=== PATIENT | female | born 1990 | race Caucasian/White ===

== ENCOUNTER 2021-04-10 17:38 | Emergency (ER) | payer MEDICAID ==
--- NOTE | 2021-04-10 17:43 | ERPHSYRPT ---
- History of Present Illness Historian: patient, family Exam Limitations: no limitations Activities at Onset: none Quality: sharpness, stabbing Abdominal Pain Onset Location: RLQ, flank (Right) Pain Radiation: RLQ, flank (Right flank to right lower quadrant) Severity of Pain-Max: moderate Severity of Pain-Current: moderate Associated Symptoms: loss of appetite, nausea, No fever/chills, No vomiting Previous symptoms: no prior history <VIJAY QUILES - Last Filed: 04/10/21 18:46> <HEATH MOURA - Last Filed: 04/10/21 23:07> - History of Present Illness Time Seen by Provider: 04/10/21 17:43 Physician History: This is a 30-year-old white female who has had no prior abdominal surgeries, takes no medications chronically, has no known drug allergies and presents with 6-day history of right flank pain which radiates around to her right lower quadrant. She has had no fevers. She has had nausea but no vomiting. She is had a decreased appetite as well. She has had no diarrhea. Her pain has not changed it is persistently moderate. It is sharp pain that is shooting around from the flank to the right lower quadrant. Denies dysuria. Denies hematuria. She has had no vaginal discharge. She is currently 3 days into her last menstrual period (VIJAY QUILES) Allergies/Adverse Reactions: No Known Drug Allergies Allergy (Unverified 04/10/21 17:58) Travel Risk - International Travel Have you traveled outside of the country in past 3 weeks: No - Coronavirus Screening Are you exhibiting any of the following symptoms?: No Close contact with a COVID-19 positive Pt in past 14-21 Days: No <VIJAY QUILES - Last Filed: 04/10/21 18:46> - Review of Systems Constitutional: No Symptoms Eyes: No Symptoms Ears, Nose, & Throat: No Symptoms Respiratory: No Symptoms Cardiac: No Symptoms Abdominal/Gastrointestinal: Abdominal Pain, Nausea, No Vomiting, No Diarrhea Genitourinary Symptoms: Flank Pain (Right flank pain), No Dysuria, No Frequency Musculoskeletal: No Symptoms Skin: No Symptoms Neurological: No Symptoms Psychological: No Symptoms Endocrine: No Symptoms Hematologic/Lymphatic: No Symptoms Immunological/Allergic: No Symptoms All Other Systems: Reviewed and Negative <VIJAY QUILES [facility] - Last Filed: 04/10/21 18:46> - Past Medical History Pertinent Past Medical History: No Neurological History: No Pertinent History ENT History: No Pertinent History Cardiac History: No Pertinent History Respiratory History: No Pertinent History Endocrine Medical History: No Pertinent History Musculoskeletal History: No Pertinent History GI Medical History: No Pertinent History History: No Pertinent History Psycho-Social History: No Pertinent History Female Reproductive Disorders: No Pertinent History - Past Surgical History Past Surgical History: No <VIJAY QUILES [facility] - Last Filed: 04/10/21 18:46> - Physical Exam General Appearance: no apparent distress, alert, anxiety Eye Exam: PERRL/EOMI, eyes nml inspection Ears, Nose, Throat Exam: normal ENT inspection, moist mucous membranes Neck Exam: normal inspection, non-tender, supple, full range of motion Respiratory Exam: normal breath sounds, lungs clear, airway intact, No chest tenderness, No respiratory distress Cardiovascular Exam: regular rate/rhythm, normal heart sounds, normal peripheral pulses Gastrointestinal/Abdomen Exam: soft, normal bowel sounds, No tenderness Pelvic Exam: not done Rectal Exam: not done Back Exam: normal inspection, normal range of motion, CVA tenderness (Right), No vertebral tenderness Extremity Exam: normal inspection, normal range of motion, pelvis stable Neurologic Exam: alert, oriented x 3, cooperative, 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, normal mood/affect, nml cerebellar function, nml station & gait Skin Exam: normal color, warm, dry Lymphatic Exam: No adenopathy SpO2 Interpretation: normal O2 Delivery: Room Air <VIJAY QUILES [facility] - Last Filed: 04/10/21 18:46> - Nursing Vital Signs Nursing Vital Signs: Initial Vital Signs Temperature 99.1 F 04/10/21 17:42 Pulse Rate 64 04/10/21 17:42 Respiratory Rate 18 04/10/21 17:42 Blood Pressure 109/73 04/10/21 17:42 O2 Sat by Pulse Oximetry 100 04/10/21 17:42 Pain Scale Pain Intensity 5 - Course Nursing assessment & vital signs reviewed: Yes <IVJAY QUILES [facility] - Last Filed: 04/10/21 18:46> Ordered Tests: Active Orders 24 hr Category Date Time Status IV Insertion STAT Care 04/10/21 18:35 Completed ABDOMEN AND PELVIS W/0 CONTRAS [CT] Stat Exams 04/10/21 18:35 Taken AMYLASE Stat Lab 04/10/21 18:00 Completed CBC W DIFF Stat Lab 04/10/21 18:00 Completed CMP Stat Lab 04/10/21 18:00 Completed CULTURE,URINE Stat Lab 04/10/21 18:38 Received HCG,QUALITATIVE URINE Stat Lab 04/10/21 18:38 Completed LIPASE Stat Lab 04/10/21 18:00 Completed Lactic Acid Stat Lab 04/10/21 18:35 Completed Manual Differential NC Stat Lab 04/10/21 18:00 Completed UA W/RFX UR CULTURE Stat Lab 04/10/21 18:38 Completed Medication Summary Discontinued Medications Generic Name Dose Route Start Last Admin Trade Name Warrenq PRN Reason Stop Dose Admin Acetaminophen 1,000 mg 04/10/21 20:22 04/10/21 20:24 Tylenol Extra Strength 500 Mg PO 04/10/21 20:23 1,000 mg STAT ONE Administration Acetaminophen Confirm 04/10/21 20:23 Tylenol Extra Strength 500 Mg Administered 04/10/21 20:24 Dose 1,000 mg .ROUTE .STK-MED ONE Hydromorphone HCl 0.5 mg 04/10/21 18:35 04/10/21 18:55 Hydromorphone 1 Mg/Ml Injection IV 04/10/21 18:36 0.5 mg STAT ONE Administration Hydromorphone HCl Confirm 04/10/21 18:52 Hydromorphone 1 Mg/Ml Injection Administered 04/10/21 18:53 Dose 1 mg .ROUTE .STK-MED ONE Sodium Chloride 1,000 mls @ 999 mls/hr 04/10/21 18:35 04/10/21 20:15 Sodium Chloride 0.9% 1000 Ml IV 04/10/21 19:35 Infused .Q1H1M STA Infusion Sodium Chloride Confirm 04/10/21 18:52 Sodium Chloride 0.9% 1000 Ml Administered 04/10/21 18:53 Dose 1,000 mls @ ud .ROUTE .STK-MED ONE Levofloxacin 500 mg 04/10/21 21:15 04/10/21 21:19 Levofloxacin 250mg Tablet PO 04/10/21 21:16 500 mg STAT ONE Administration Levofloxacin Confirm 04/10/21 21:17 Levofloxacin 250mg Tablet Administered 04/10/21 21:18 Dose 500 mg .ROUTE .STK-MED ONE Morphine Sulfate 4 mg 04/10/21 20:20 04/10/21 20:21 Morphine Sulfate 4 Mg Inj IV 04/10/21 20:21 Not Given STAT ONE Morphine Sulfate 4 mg 04/10/21 21:14 04/10/21 21:19 Morphine Sulfate 4 Mg Inj IV 04/10/21 21:15 4 mg STAT ONE Administration Morphine Sulfate Confirm 04/10/21 21:17 Morphine Sulfate 4 Mg Inj Administered 04/10/21 21:18 Dose 4 mg .ROUTE .STK-MED ONE Ondansetron HCl 4 mg 04/10/21 18:35 04/10/21 18:55 Zofran 4 Mg/2 Ml Vial IV 04/10/21 18:36 4 mg STAT ONE Administration Ondansetron HCl Confirm 04/10/21 18:51 Zofran 4 Mg/2 Ml Vial Administered 04/10/21 18:52 Dose 4 mg .ROUTE .STK-MED ONE Potassium Chloride 40 meq 04/10/21 21:30 04/10/21 21:32 Klor Con 10 Meq PO 04/10/21 21:31 40 meq STAT ONE Administration Potassium Chloride Confirm 04/10/21 21:31 Klor Con 10 Meq Administered 04/10/21 21:32 Dose 40 meq PO .STK-MED ONE Lab/Rad Data: Laboratory Result Diagrams 04/10/21 18:00 04/10/21 18:00 Laboratory Results 04/10/21 04/10/21 04/10/21 Range/Units 18:38 18:38 18:35 WBC (4.0-10.5) K/mm3 RBC (4.1-5.4) M/mm3 Hgb (12.0-16.0) gm/dl Hct (35-47) % MCV (78-100) fl MCH (26-32) pg MCHC (32-36) g/dl RDW (11.5-14.0) % Plt Count (150-450) K/mm3 MPV (7.5-11.0) fl Segmented Neutrophils (36.0-66.0) % Lymphocytes (Manual) (24-44) % Monocytes (Manual) (0.0-12.0) % Eosinophils (Manual) (0.00-3.0) % Atypical Lymphocytes % Platelet Estimate (NORMAL) RBC Morphology Sodium (137-145) mmol/L Potassium (3.5-5.1) mmol/L Chloride (98-107) mmol/L Carbon Dioxide (22-30) mmol/L Anion Gap (5-15) MEQ/L BUN (7-17) mg/dL Creatinine (0.52-1.04) mg/dL Estimated GFR ML/MIN Glucose (74-106) mg/dL Lactic Acid 1.5 (0.4-2.0) Calcium (8.4-10.2) mg/dL Total Bilirubin (0.2-1.3) mg/dL AST (14-36) U/L ALT (0-35) U/L Alkaline Phosphatase (38-126) U/L Serum Total Protein (6.3-8.2) g/dL Albumin (3.5-5.0) g/dL Amylase (30-110) U/L Lipase (23-300) U/L Urine Color YELLOW (YELLOW) Urine Appearance CLOUDY (CLEAR) Urine pH 7.0 (5-6) Ur Specific [place] 1.004 (1.005-1.025) Urine Protein 30 (Negative) Urine Ketones NEGATIVE (NEGATIVE) Urine Blood MODERATE (0-5) [place]/ul Urine Nitrite NEGATIVE (NEGATIVE) Urine Bilirubin NEGATIVE (NEGATIVE) Urine Urobilinogen NEGATIVE (0-1) mg/dL Ur Leukocyte Esterase LARGE (NEGATIVE) Urine WBC (Auto) >100 (0-5) /HPF Urine RBC (Auto) 16-25 (0-2) /HPF U Epithel Cells (Auto) RARE (FEW) /HPF Urine Bacteria (Auto) MANY (NEGATIVE) /HPF Urine Culture Reflexed YES (NO) Urine Glucose NEGATIVE (NEGATIVE) mg/dL Urine HCG, Qual NEGATIVE (Negative) 04/10/21 04/10/21 Range/Units 18:00 18:00 WBC 14.1 H (4.0-10.5) K/mm3 RBC 4.06 L (4.1-5.4) M/mm3 Hgb 12.2 (12.0-16.0) gm/dl Hct 38.4 (35-47) % MCV 94.6 (78-100) fl MCH 30.0 (26-32) pg MCHC 31.8 L (32-36) g/dl RDW 14.4 H (11.5-14.0) % Plt Count 395 (150-450) K/mm3 MPV 9.7 (7.5-11.0) fl Segmented Neutrophils 72 H (36.0-66.0) % Lymphocytes (Manual) 18 L (24-44) % Monocytes (Manual) 7 (0.0-12.0) % Eosinophils (Manual) 1 (0.00-3.0) % Atypical Lymphocytes 2 % Platelet Estimate NORMAL (NORMAL) RBC Morphology NORMAL Sodium 137 (137-145) mmol/L Potassium 3.1 L (3.5-5.1) mmol/L Chloride 94 L (98-107) mmol/L Carbon Dioxide 32 H (22-30) mmol/L Anion Gap 14.5 (5-15) MEQ/L BUN 3 L (7-17) mg/dL Creatinine 0.79 (0.52-1.04) mg/dL Estimated GFR > 60.0 ML/MIN Glucose 77 (74-106) mg/dL Lactic Acid (0.4-2.0) Calcium 9.6 (8.4-10.2) mg/dL Total Bilirubin 0.40 (0.2-1.3) mg/dL AST 85 H (14-36) U/L ALT 84 H (0-35) U/L Alkaline Phosphatase 261 H (38-126) U/L Serum Total Protein 7.9 (6.3-8.2) g/dL Albumin 4.1 (3.5-5.0) g/dL Amylase < 30 L (30-110) U/L Lipase 16 L (23-300) U/L Urine Color (YELLOW) Urine Appearance (CLEAR) Urine pH (5-6) Ur Specific [place] (1.005-1.025) Urine Protein (Negative) Urine Ketones (NEGATIVE) Urine Blood (0-5) [place]/ul Urine Nitrite (NEGATIVE) Urine Bilirubin (NEGATIVE) Urine Urobilinogen (0-1) mg/dL Ur Leukocyte Esterase (NEGATIVE) Urine WBC (Auto) (0-5) /HPF Urine RBC (Auto) (0-2) /HPF U Epithel Cells (Auto) (FEW) /HPF Urine Bacteria (Auto) (NEGATIVE) /HPF Urine Culture Reflexed (NO) Urine Glucose (NEGATIVE) mg/dL Urine HCG, Qual (Negative) - Progress Progress: improved <VIJAY QUILES - Last Filed: 04/10/21 18:46> - Progress Discussed with .: Corey Counseled pt/family regarding: lab results, diagnosis, need for follow-up, rad results <HEATH MOURA - Last Filed: 04/10/21 23:07> - Progress Progress Note: 04/10/21 18:47 At shift change, I discussed the patient history, condition, pending work-up with Dr. Moura. He accepts the patient in transfer care to him. He will follow up with the studies and make the final disposition (VIJAY QUILES) 04/10/21 patient is checked out to me at shift change with pending work-up. Patient presented with right flank/right upper quadrant pain. She is given symptomatic treatment for pain, on my evaluation CT has some tenderness in the right upper quadrant. Work-up showed white count of 14, mildly elevated transaminases with normal bilirubin. CT showed gallstones without any pericholecystic fluid, CBD dilatation or any gallbladder wall thickening. Patient is nauseated but no vomiting. I believe patient is having biliary colic and needs cholecystectomy. I have discussed with patient and she wants to go home. I have discussed with Dr. Anais Snowden, reviewed work-up and patient's david re. He is okay with sending her home on pain medication and outpatient follow- up. She does have UTI and started on Cipro to go home. Discussed sign symptoms of worsening needing return to ER which she seems understanding. (HEATH MOURA) - Departure Departure Disposition: Home Critical Care Time: No <VIJAY QUILES - Last Filed: 04/10/21 18:46> <HEATH MOURA - Last Filed: 04/10/21 23:07> - Departure Clinical Impression: Colic, biliary, Hypokalemia, Acute UTI Condition: Stable Referrals: DOCTOR,NO FAMILY [Primary Care Provider] - ANAIS SNOWDEN [ACTIVE STAFF] - (1-2 days for reevaluation) Instructions: Acute Abdomen (Belly Pain), Adult (DC), Gallstones (DC) Additional Instructions: Take pain medications as needed. Follow-up with primary care for reevaluation of UTI. Follow-up with general surgery for reevaluation of abdominal pain/gallstone. Return to ER for intractable pain/vomiting/fever chills etc. Prescriptions: Hydrocodone/APAP 5/325 [[place] 5/325 mg] 1 each PO Q6H PRN PRN #10 tablet MDD 4 PRN Reason: Pain Ondansetron ODT 4 MG [Zofran Odt 4 mg] 4 mg PO Q6H PRN PRN #7 tab.rapdis PRN Reason: Vomiting Ciprofloxacin [Cipro 500 MG] 500 mg PO BID #14 tablet
[2021-04-10] MEDS ORDERED: Hydromorphone 1 mg/ml Injection IV ONE (18:35)
[2021-04-10] MEDS ORDERED: Sodium Chloride 0.9% 1000 ML 1,000 ML IV STA (18:35)
[2021-04-10] MEDS ORDERED: Zofran 4 MG/2 ML VIAL IV ONE (18:35)
[2021-04-10 18:45] LABS: Hematocrit 38.4 % (35-47); Hemoglobin 12.2 gm/dl (12.0-16.0); Mean Cell Volume 94.6 fl (78-100); Mean Corpuscular Hgb Concent. 31.8 g/dl (32-36); Mean Platelet Volume 9.7 fl (7.5-11.0); Platelet Count 395 K/mm3 (150-450); Red Blood Count 4.06 M/mm3 (4.1-5.4); Red Cell Distribution Width 14.4 % (11.5-14.0); White Blood Count 14.1 K/mm3 (4.0-10.5)
[2021-04-10 18:49] LABS: ALBUMIN 4.1 g/dL (3.5-5.0); ALKALINE PHOSPHATASE 261 U/L (38-126); AMYLASE < 30 U/L (30-110); ANION GAP 14.5 MEQ/L (5-15); BLOOD UREA NITROGEN 3 mg/dL (7-17); CHLORIDE 94 mmol/L (98-107); Calcium 9.6 mg/dL (8.4-10.2); Carbon Dioxide 32 mmol/L (22-30); Creatinine 1 0.79 mg/dL (0.52-1.04); EST GLOMERULAR FILTRATION RATE > 60.0 ML/MIN; Glucose 77 mg/dL (74-106); LIPASE 16 U/L (23-300); Potassium 3.1 mmol/L (3.5-5.1); SGOT/AST 85 U/L (14-36); SGPT/ALT 84 U/L (0-35); SODIUM 137 mmol/L (137-145); Total Protein 7.9 g/dL (6.3-8.2)
[2021-04-10] MEDS ORDERED: Zofran 4 MG/2 ML VIAL ONE (18:51)
[2021-04-10] MEDS ORDERED: Sodium Chloride 0.9% 1000 ML 1,000 ML ONE (18:52)
[2021-04-10] MEDS ORDERED: Hydromorphone 1 mg/ml Injection ONE (18:52)
[2021-04-10 18:54] LABS: Appearance CLOUDY (CLEAR); Bacteria MANY /HPF (NEGATIVE); Bilirubin NEGATIVE (NEGATIVE); Blood MODERATE Ery/ul (0-5); Epithelial Cells RARE /HPF (FEW); Glucose NEGATIVE (NEGATIVE); Ketones NEGATIVE (NEGATIVE); Leukocyte Esterase LARGE (NEGATIVE); Nitrite NEGATIVE (NEGATIVE); Protein,Urine Dip 30 (Negative); Specific Gravity 1.004 (1.005-1.025); Urobilinogen NEGATIVE mg/dL (0-1); WBC >100 /HPF (0-5)
[2021-04-10 19:46] LABS: ATYPICAL LYMPHS 2 %; Eosinophil 1 % (0.00-3.0); Lymphocytes 18 % (24-44); Monocyte 7 % (0.0-12.0); Neutrophils 72 % (36.0-66.0); Platelet Estimate NORMAL (NORMAL); Total Cells Counted 100
[2021-04-10] MEDS ORDERED: MORPHINE SULFATE 4 MG INJ IV ONE ×2 (20:20→21:14)
[2021-04-10] MEDS ORDERED: TYLENOL EXTRA STRENGTH 500 MG PO ONE (20:22)
[2021-04-10] MEDS ORDERED: TYLENOL EXTRA STRENGTH 500 MG ONE (20:23)
[2021-04-10] MEDS ORDERED: Levofloxacin 250MG Tablet PO ONE (21:15)
[2021-04-10] MEDS ORDERED: MORPHINE SULFATE 4 MG INJ ONE (21:17)
[2021-04-10] MEDS ORDERED: Levofloxacin 250MG Tablet ONE (21:17)
[2021-04-10 21:25] VITALS: BP 98/77; PULSE 84; O2SAT 96
[2021-04-10] MEDS ORDERED: Klor Con 10 MEQ PO ONE ×2 (21:30→21:31)
--- NOTE | 2021-04-11 08:41 | XRAY ---
Indication: Right lower quadrant pain. Multiple contiguous axial images obtained through the abdomen and pelvis without contrast. Comparison: None Lung bases demonstrates a few tiny calcified granulomas and right middle lobe fibrosis/scarring. No infiltrate or effusion. Heart not enlarged. Stomach is distended with food/fluid. Noncontrasted stomach and bowel loops appear nonobstructed. Normal air-filled appendix. Liver is enlarged measuring 20.5 cm. A few gallstones, largest 2 cm. Remaining liver, pancreas, spleen, adrenal glands, kidneys, ureters, bladder, uterus, and aorta are unremarkable for noncontrast exam. Osseous structures intact with minimal degenerative changes and incidental T9-T10 fusion. Impression: 1. Cholelithiasis better evaluated with ultrasound if clinically warranted. 2. Hepatomegaly and chronic bony findings. 3. Remaining CT abdomen/pelvis without contrast exam is negative. Comment: Preliminary interpretation was made by [facility]. No critical discrepancy.
== END 2021-04-10 21:45 | disposition home or self-care (01) ==
LOC: ED 17:38
DX: K80.50 Calculus of bile duct without cholangitis or cholecystitis without obstruction (principal)
CPT/HCPCS: 36000; 36415; 74176; 80053; 81001; 82150; 83605; 83690; 84703; 85025; 87077; 87086; 87186; 96374; 96375; 96376; 99284; J1170; J2270; J2405; A9270-GY